=== PATIENT | female | born 1950 | race Caucasian/White ===

== ENCOUNTER 2018-10-16 06:47 | Outpatient (CLI) | payer OTHER ==
[~2018-10-16] VITALS: Ht 167.6 cm; Wt 75.3 kg
[2018-10-16] MEDS ORDERED: VITA1CAP PO (12:45)
[2018-10-16] MEDS ORDERED: CALC-794 PO (12:45)
[2018-10-16] MEDS ORDERED: ASPI-586 PO (12:45)
[2018-10-16] MEDS ORDERED: MULT1CAP27 PO (12:45)
== END 2018-10-16 13:35 | disposition home or self-care (01) ==
LOC: PREOP 06:47
PROVIDERS: ATTEND Surgery
DX: Z01.818 Encounter for other preprocedural examination (principal)

== ENCOUNTER 2018-10-18 06:08 | Day surgery (SDC) | payer MEDICARE, OTHER ==
[~2018-10-18] VITALS: Ht 162.6 cm; Wt 75.4 kg
[~2018-10-18 06:08] MED LIST: ASPI-586 PO; CALC-794 PO; MULT1CAP27 PO; VITA1CAP PO
[2018-10-18] MEDS ORDERED: LACTATED RINGERS 1,000 ML IV PRN (06:16)
[2018-10-18 06:20] VITALS: BP 113/73
[2018-10-18] MEDS ORDERED: ceFAZolin INJECTION 1,000 MG in WATER (STERILE) FOR INJECTION 10 ML IV ONE (06:30)
[2018-10-18] MEDS ORDERED: SEVOFLURANE (ULTANE) 15 ML INHAL SOLN ONE ×3 (06:57→09:18)
[2018-10-18] MEDS ORDERED: fentaNYL INJECTION 100 MCG/2 ML AMP ONE (06:57)
[2018-10-18] MEDS ORDERED: proPOfol 200 MG/20 ML (DIPRIVAN) VIAL IV ONE (06:57)
[2018-10-18] MEDS ORDERED: ONDANSETRON 4 MG/2 ML (SDV) Z0FRAN ONE (06:57)
[2018-10-18] MEDS ORDERED: LIDOCAINE PF 2% 5 ML (XYLOCAINE) VIAL ONE (06:57)
[2018-10-18] MEDS ORDERED: DEXAMETHASONE 10 MG/ML (DECADRON) 1 ML VIAL ONE (06:57)
[2018-10-18] MEDS ORDERED: MIDAZOLAM 2 MG/2 ML (VERSED) VIAL ONE (06:58)
[2018-10-18] MEDS ORDERED: CATHETER FLUSH 10 ML SYR IV PRN (07:00)
[2018-10-18] MEDS ORDERED: LIDOCAINE 1% INJ 20 ML 20 ML VIAL ONE (07:15)
[2018-10-18] MEDS ORDERED: BUP/EPI 0.5% 1:200,000 (SENSORCAINE) 30 ML VIAL ONE (07:15)
--- NOTE | 2018-10-18 08:41 | Progress Note-Pre Operative ---
Pre-Operative Progress Note H&P Reviewed The H&P was reviewed, patient examined and no changes noted. Date Seen by Provider: Oct 18, 2018 Time Seen by Provider: 08:41 Date H&P Reviewed: Oct 18, 2018 Time H&P Reviewed: 08:41 Pre-Operative Diagnosis: left arm cyst LISSETH YOU DO Oct 18, 2018 08:41
--- NOTE | 2018-10-18 09:28 | Progress Note-Post Operative ---
Post-Operative Progess Note Surgeon (s)/Pharmacy General Manager (s) Surgeon LISSETH YOU DO Pharmacy General Manager: NA Pre-Operative Diagnosis left arm cyst Post-Operative Diagnosis SAME Procedure & Operative Findings Date of Procedure 10/18/18 Procedure Performed/Findings EXCISION LEFT ARM CYST 3.7X8.2 CM Anesthesia Type GEN Estimated Blood Loss Estimated blood loss (mL): MIN Specimens/Packing Specimens Removed LEFT ARM CYST SKIN AND SUBCUTANEOUS TISSUE LISSETH YOU DO Oct 18, 2018 09:28
--- NOTE | 2018-10-18 09:30 | Discharge Inst-Simple/Standard ---
Discharge Inst-Standard Patient Instructions/Follow Up Plan of Care/Instructions/FU: 2 WEEKS [place] Activity as Tolerated: No Discharge Diet: Regular Diet Other Inst to Patient Follow up Appt: Make appointment for 2 week. Instructions: No lifting greater than 10 pounds. No strenuous activity. May shower in 24 hours, no tub bath or soaking. Use incentive spirometer at home as directed. No Smoking Skin/Wound Care: YOU HAVE SPECIAL GLUE OVER INCISION IT WILL FALL OFF ON ITS OWN. Symptoms to Report: Appetite Changes, Extremity Discoloration, Numbness/Tingling, Swelling Increased , Bleeding Excessive, Eyesight Changes, Pain Increased, Urine Color Change, Constipation(Persistent), Fever over 101 degree F, Pain/Pressure in chest, Urinating Difficulty, Cough Up/Vomit Blood, Heart Beat Irreg/Pounding, Pain/ Pressure in jaw, Vaginal Bleeding Increase, Cramps in feet or legs, Lightheadedness, Pain/Pressure in shoulder, Diarrhea(Persistent), Memory Changes Suddenly, Questions/Concerns, Weight gain consecutive days, Dizziness/ Fainting, Nausea/Vomiting, Shortness of Breath, Weight gain over 2 pounds If questions or concerns contact your physician Or seek help at emergency department. LISSETH YOU DO Oct 18, 2018 09:30
[2018-10-18 10:15] VITALS: BP 114/74
[2018-10-18 10:20] VITALS: BP 114/74
[2018-10-18 10:45] VITALS: BP 114/78
--- NOTE | 2018-10-18 10:50 | NUR ---
pt's wound on left shoulder is oozing a tiny amount of sero sanguinous drainage, this nurse applied an telfa adhesive island dressing before discharge.
[2018-10-18 11:15] VITALS: BP 118/75
--- NOTE | 2018-10-18 13:21 | Anesthesia-General Post-Op ---
General Patient Condition Mental Status/LOC: Same as Preop Cardiovascular: Satisfactory Nausea/Vomiting: Absent Respiratory: Satisfactory Pain: Controlled Complications: Absent Post Op Complications Complications None Follow Up Care/Instructions Patient Instructions None needed. Anesthesia/Patient Condition Patient Condition Patient is doing well, no complaints, stable vital signs, no apparent adverse anesthesia problems. No complications reported per nursing. OMAR DIAZ CRNA Oct 18, 2018 13:21
--- NOTE | 2018-10-20 01:10 | OPERATIVE REPORT ---
DATE OF SERVICE: 10/18/2018 PREOPERATIVE DIAGNOSIS: Cyst, left arm. POSTOPERATIVE DIAGNOSIS: Cyst, left arm. PROCEDURE: Excision of left arm cyst 3.7 x 8.2 cm. SURGEON: Lisseth Mccoy DO. ANESTHESIA: General. ESTIMATED BLOOD LOSS: Minimal. COMPLICATIONS: None. INDICATIONS: The patient is a 68-year-old female with a large cyst that has been draining at times. She understands risks and benefits of procedure and wished to proceed with procedure. Consent was signed in the chart. PROCEDURE: The patient was taken to the operating suite, placed in the supine position. The arm was prepped and draped in sterile fashion. Timeout was performed. Local anesthetic was infiltrated around the cyst. The skin and subcutaneous tissue around the cyst were removed. Overall, dimensions 3.7 x 8.2 cm. This was performed with both sharp and cautery dissection. Once removed, the wound was irrigated and hemostasis was achieved. The subcutaneous tissues were then reapproximated using 3-0 Vicryl. Skin was then closed using 4-0 Vicryl in a running subcuticular fashion. The arm was then washed and dried and Skin Affix was placed over the incisions. The patient tolerated procedure well without any complications. She was taken to recovery room in stable condition. Job ID: [id number] DocumentID: [id number] Dictated Date: 10/19/2018 14:41:30 Machine Worker Date: 10/20/2018 01:09:31 Dictated By: LISSETH MCCOY DO [facility]
== END 2018-10-18 11:20 | disposition home or self-care (01) ==
LOC: SDC 06:08
PROVIDERS: ATTEND Surgery
DX: L72.0 Epidermal cyst (principal); Z79.82 Long term (current) use of aspirin
CPT/HCPCS: 87081; 88304

== ENCOUNTER → 2020-03-17 | Outpatient (CLI) | payer MEDICARE, OTHER ==
--- NOTE | 2020-03-17 13:04 | Diagnostic Imaging Report ---
INDICATION: Routine screening. COMPARISON: 05/17/2011 and 06/10/2009. TECHNIQUE: 2D and 3D bilateral screening mammography was performed with CAD. FINDINGS: Scattered fibroglandular densities are identified bilaterally. Circumscribed nodular densities in both breasts appear stable and consistent with benign etiologies. No spiculated mass or malignant appearing microcalcifications are seen. The axillae are unremarkable. IMPRESSION: No mammographic features suspicious for malignancy are identified. ACR BI-RADS Category 2: Benign findings. Result letter will be mailed to the patient. Note: At least 10% of breast cancer is not imaged by mammography. Dictated by: Dictated on workstation # [id number]
== END ==
LOC: RAD 10:14
PROVIDERS: ATTEND Family Medicine
DX: Z12.31 Encounter for screening mammogram for malignant neoplasm of breast (principal)
CPT/HCPCS: 77063; 77067

== ENCOUNTER → 2022-08-19 | Outpatient (CLI) | payer MEDICARE, OTHER ==
--- NOTE | 2022-08-19 15:14 | Diagnostic Imaging Report ---
EXAMINATION: Right hip radiographs, 2 views. COMPARISON: None. HISTORY: 72-year-old female, right hip pain. FINDINGS: There is severe joint space loss of the right hip with [id number] articulation. The right hip is not dislocated. There is no identified acute fracture. IMPRESSION: 1. Severe osteoarthritis of the right hip. Dictated by: Dictated on workstation # [id number]
== END ==
LOC: RAD 10:07
PROVIDERS: ATTEND Family Medicine
DX: M16.11 Unilateral primary osteoarthritis, right hip (principal)
CPT/HCPCS: 73502